=== PATIENT | male | born 1945 | race Two or more races ===

== ENCOUNTER 2019-02-28 03:34 | Emergency (ER) | payer OTHER ==
[~2019-02-28] VITALS: Ht 167.6 cm; Wt 68.0 kg
[2019-02-28 04:53] LABS: Basophils # (auto) 0 uL; Basophils % (auto) 0.4 % (0.0-2.0); Eosinophils # (auto) 0.1 uL; Eosinophils % (auto) 1.1 % (0.0-7.0); Hematocrit 39.2 % (41.0-53.0); Hemoglobin 12.9 g/dL (13.5-17.5); Lymphocytes # (auto) 1.4 uL; Lymphocytes % (auto) 14.5 % (10.0-50.0); Mean Corpuscular Hemoglobin 29.7 pg (28.0-32.0); Mean Corpuscular Hgb Conc. 32.9 g/dL (32.0-36.0); Mean Corpuscular Volume 90.5 fL (80.0-100.0); Monocytes # (auto) 0.9 uL; Monocytes % (auto) 9.2 % (0.0-12.0); Neutrophils # (auto) 7.4 uL; Neutrophils % (auto) 74.8 % (37.0-80.0); Platelet Count (auto) 302 10^3/uL (140-450); Red Blood Cells 4.34 10^6/uL (4.5-5.90); Red Cell Distribution Width 16.1 % (11.8-14.3); White Blood Cell 9.9 10^3/uL (4.4-10.8)
[2019-02-28 05:08] LABS: Albumin 3.1 g/dL (3.4-5.0); Anion Gap 7 (5-15); BUN/Creatinine Ratio 15.5; Blood Alcohol < 3.0 mg/dL (0-5); Blood Urea Nitrogen 11 mg/dL (7-18); Calcium 8.6 mg/dL (8.5-10.1); Carbon Dioxide 28 mmol/L (21-32); Chloride 108 mmol/L (98-107); GFR African American 140 mL/min; GFR Non-African American 116 mL/min; Glucose 91 mg/dL (74-106); Potassium 4.1 mmol/L (3.5-5.1); Sodium 143 mmol/L (136-145)
[2019-02-28 05:13] LABS: Alanine Aminotransferase 14 U/L (16-61); Alkaline Phosphatase 104 U/L (45-117); Aspartate Aminotransferase 15 U/L (15-37); Bilirubin, Total 0.4 mg/dL (0.2-1.0); Total Protein 6.7 g/dL (6.4-8.2)
[2019-02-28] MEDS ORDERED: LORazepam 2MG/ML-1ML VIAL IV ONE (09:00)
[2019-02-28] MEDS ORDERED: GADOPENTETATE DIMEGLUMINE (10MMOL/20 ML) VIAL IV ONE (10:30)
[2019-02-28] MEDS ORDERED: CEFTRIAXONE SODIUM 2 GM in D5W 5% 50 ML IV ONE (11:30)
[2019-02-28] MEDS ORDERED: VANCOMYCIN 1GM/250ML 250 ML IV ONE (11:30)
[2019-02-28 13:53] VITALS: BP 124/96
== END 2019-02-28 14:16 | disposition short-term general hospital (02) ==
LOC: EDBD 03:34 → ER 03:36
DX: R41.82 Altered mental status, unspecified (principal); I63.9 Cerebral infarction, unspecified; Z90.49 Acquired absence of other specified parts of digestive tract
CPT/HCPCS: 36415; 70450; 70553; 71045; 80053; 80320; 83605; 84484; 85025; 87040; 94761; 96365; 96367; 96375; 99285; A9579; J0696; J2060; J3370; J7060

== ENCOUNTER 2019-06-14 14:13 | Emergency (ER) | payer OTHER ==
[~2019-06-14] VITALS: Ht 154.9 cm; Wt 56.7 kg
[2019-06-14] MEDS ORDERED: SODIUM CHLORIDE 0.9% 1,000 ML IVB ONE (14:38)
[2019-06-14] MEDS ORDERED: PANTOPRAZOLE 40 MG/10 ML VIAL INJ IV ONE (14:45)
[2019-06-14 15:08] LABS: Basophils # (auto) 0 uL; Basophils % (auto) 0.2 % (0.0-2.0); Eosinophils # (auto) 0.1 uL; Hemoglobin 7.9 g/dL (13.5-17.5); Monocytes # (auto) 0.4 uL; Neutrophils # (auto) 4.7 uL
[2019-06-14 15:10] LABS: Eosinophils % (auto) 1.1 % (0.0-7.0); Hematocrit 24.6 % (41.0-53.0); Lymphocytes # (auto) 2.5 uL; Lymphocytes % (auto) 32.4 % (10.0-50.0); Mean Corpuscular Hemoglobin 29.2 pg (28.0-32.0); Mean Corpuscular Hgb Conc. 32.1 g/dL (32.0-36.0); Mean Corpuscular Volume 90.9 fL (80.0-100.0); Monocytes % (auto) 5.1 % (0.0-12.0); Neutrophils % (auto) 61.2 % (37.0-80.0); Platelet Count (auto) 197 10^3/uL (140-450); Red Blood Cells 2.71 10^6/uL (4.5-5.90); Red Cell Distribution Width 16.1 % (11.8-14.3); White Blood Cell 7.7 10^3/uL (4.4-10.8)
[2019-06-14 15:29] LABS: Albumin 2.3 g/dL (3.4-5.0); BUN/Creatinine Ratio 42.3; Calcium 7.3 mg/dL (8.5-10.1); INR 1.06 (0.9-1.15); Magnesium 2.2 mg/dL (1.6-2.6); Partial Thromboplastin Time 26.4 sec (23.64-32.05); Potassium 3.8 mmol/L (3.5-5.1)
[2019-06-14] MEDS ORDERED: HETASTARCH 500 ML IV ONE ×2 (15:30)
[2019-06-14] MEDS ORDERED: LACTATED RINGER'S 1,000 ML IV ONE (15:30)
[2019-06-14] MEDS ORDERED: OCTREOTIDE ACETATE 100 MCG in SODIUM CHL 0.9% 50 ML IV ONE (15:30)
[2019-06-14] MEDS ORDERED: OCTREOTIDE ACETATE 500 MCG in SODIUM CHL 0.9% 99 ML IV SCH (15:30)
[2019-06-14 15:32] LABS: Bilirubin, Total 0.3 mg/dL (0.2-1.0); Total Protein 4.6 g/dL (6.4-8.2)
[2019-06-14] MEDS ORDERED: NOREPINEPHRINE 8 MG/250ML KIT 250 ML IV ONE (15:37)
[2019-06-14] MEDS ORDERED: ALBUMIN 25% 100 ML IV ONE (15:41)
[2019-06-14] MEDS ORDERED: ONDANSETRON HCL 4 MG/2 ML VIAL ONE (15:58)
[2019-06-14] MEDS ORDERED: MORPHINE SULF INJ 2 MG/ML SYRINGE 1ML ONE (16:38)
[2019-06-14] MEDS ORDERED: MORPHINE SULFATE 4 MG/ML SYR/VIAL IV ONE ×2 (16:38→17:30)
[2019-06-14] MEDS ORDERED: PROMETHAZINE HCL 25 MG/ML 1ML ONE (16:39)
[2019-06-14] MEDS ORDERED: PROMETHAZINE HCL 25 MG/ML 1ML IV ONE (16:39)
[2019-06-14] MEDS ORDERED: PANTOPRAZOLE 80 MG in SODIUM CHL 0.9% 60 ML IV ONE (19:30)
[2019-06-14] MEDS ORDERED: PHYTONADIONE (VIT K)10 MG/ML 1ML VIAL SUBCUT ONE (19:45)
[2019-06-14] MEDS ORDERED: PHENYLEPHRINE INJ 20 MG in SODIUM CHL 0.9% 250 ML IV SCH (19:57)
[2019-06-14] MEDS ORDERED: EPINEPHrine HCL 250 ML IV SCH (19:57)
[2019-06-14 20:18] LABS: Hematocrit 16.4 % (41.0-53.0)
[2019-06-14 20:25] LABS: Hemoglobin 4.9 g/dL (13.5-17.5)
[2019-06-14] MEDS ORDERED: EPOETIN ALFA 10,000 UNIT/1 ML VIAL SC ONE (21:30)
[2019-06-14 21:50] VITALS: BP 33/13
[2019-06-14] MEDS ORDERED: ALBUMIN 25% 50 ML IV ONE (22:00)
[2019-06-14] MEDS ORDERED: NOREPINEPHRINE 8 MG/250ML KIT 250 ML IV SCH (22:00)
== END 2019-06-15 20:15 | disposition expired ==
LOC: EDBD 14:13 → ER 14:13
DX: K92.2 Gastrointestinal hemorrhage, unspecified (principal); K92.1 Melena; I95.9 Hypotension, unspecified; D50.0 Iron deficiency anemia secondary to blood loss (chronic); I48.91 Unspecified atrial fibrillation; K21.9 Gastro-esophageal reflux disease without esophagitis; I10 Essential (primary) hypertension; Z90.49 Acquired absence of other specified parts of digestive tract
CPT/HCPCS: 36415; 71045; 74176; 80053; 82150; 83690; 83735; 85014; 85018; 85025; 85610; 85730; 93005; 94761; 96365; 96366; 96367; 96368; 96372; 96375; 96376; 99291; C9113; J0171; J0885; J2270; J2405; J2550; J3430; P9047